=== PATIENT | female | born 1975 | race Two or more races ===

== ENCOUNTER 2024-07-07 09:01 | Emergency (ER) | payer OTHER ==
[2024-07-07 09:35] LABS: Urine Bacteria None Seen /hpf (None Seen)
[2024-07-07 09:55] LABS: Urine Blood 3+ /uL (Negative); Urine Color Light-Red (Yellow); Urine Protein, UAD 1+ (Negative); Urine Specific Gravity 1.016 (1.001-1.035); Urine Urobilinogen Normal (Negative); Urine WBC 183 /hpf (0 - 5)
[2024-07-07 10:18] LABS: Basophils # (auto) 0.1 10 ^3/uL (0-0.2); Basophils % (auto) 0.7 % (0.0-2.0); Eosinophils # (auto) 0.2 10 ^3/uL (0-0.8); Eosinophils % (auto) 2.3 % (0.0-7.0); Hematocrit 42.8 % (36.0-46.0); Hemoglobin 14.9 g/dL (12.2-16.2); Lymphocytes # (auto) 2.5 10 ^3/uL (0.4-5.4); Lymphocytes % (auto) 26.5 % (10.0-50.0); Mean Corpuscular Hemoglobin 30.4 pg (28.0-32.0); Mean Corpuscular Hgb Conc. 34.9 g/dL (32.0-36.0); Mean Corpuscular Volume 87.2 fL (80.0-100.0); Monocytes # (auto) 0.5 10 ^3/uL (0-1.3); Monocytes % (auto) 4.8 % (0.0-12.0); Neutrophils # (auto) 6.2 10 ^3/uL (1.6-8.6); Neutrophils % (auto) 65.7 % (37.0-80.0); Nucleated Red Blood Cells % 0.2 %; Platelet Count (auto) 216 10^3/uL (140-450); Red Cell Distribution Width 13.8 % (11.8-14.3); White Blood Cell 9.5 10^3/uL (4.4-10.8)
[2024-07-07 10:20] LABS: Urine Clarity Cloudy (Clear)
[2024-07-07 10:48] LABS: Alanine Aminotransferase 20 U/L (7-40); Alkaline Phosphatase 92 U/L (46-116); Aspartate Aminotransferase 23 U/L (13-40); Calcium 9.8 mg/dL (8.7-10.4); Carbon Dioxide 26 mmol/L (20-30); Chloride 103 mmol/L (98-107); Glucose 108 mg/dL (74-106); Potassium 2.9 mmol/L (3.5-5.1)
[2024-07-07 10:49] LABS: Albumin 4.8 g/dL (3.2-4.8); Anion Gap 9 (5-15); Bilirubin, Total 0.7 mg/dL (0.2-1.0); Blood Urea Nitrogen 13 mg/dL (9-23); Sodium 138 mmol/L (136-145); Total Protein 8.3 g/dL (5.7-8.2)
[2024-07-07 11:56] VITALS: BP 155/79; TEMP 98.5
[2024-07-07 11:57] VITALS: PULSE 79; RESP 16; O2SAT 97
[2024-07-07] MEDS: POTASSIUM EFFERVESENT TAB 25 MEQ PO ONE (12:49)
== END 2024-07-07 12:57 | disposition home or self-care (01) ==
LOC: ER 09:01
DX: N93.9 Abnormal uterine and vaginal bleeding, unspecified (principal); R10.2 Pelvic and perineal pain; Z98.890 Other specified postprocedural states; Z88.1 Allergy status to other antibiotic agents
CPT/HCPCS: 36415; 76830; 76856; 80053; 81001; 84702; 85025